=== PATIENT | female | born 1975 | race Caucasian/White ===

== ENCOUNTER 2020-07-19 18:18 | Emergency (ER) | payer OTHER ==
[2020-07-19] MEDS ORDERED: COMPAZINE10 MG PO (21:18)
[2020-07-19] MEDS ORDERED: IMITREX50 MG PO (21:18)
== END 2020-07-19 21:36 | disposition home or self-care (01) ==
LOC: FER 18:18
DX: G43.909 Migraine, unspecified, not intractable, without status migrainosus (principal); F17.210 Nicotine dependence, cigarettes, uncomplicated
CPT/HCPCS: J0780; J1170; J1200; J1885; J7030

== ENCOUNTER 2021-03-13 18:31 | Emergency (ER) | payer OTHER ==
[~2021-03-13 18:31] MED LIST: COMPAZINE10 MG PO; IMITREX50 MG PO
[2021-03-13 19:59] LABS: CORONAVIRUS 2019 SARS-COV-2 POSITIVE (NEGATIVE); INFLUENZA A NAA NEGATIVE (NEGATIVE)
== END 2021-03-13 21:41 | disposition home or self-care (01) ==
LOC: FER 18:31
PROVIDERS: Emergency Medicine
DX: U07.1 COVID-19 (principal); F17.210 Nicotine dependence, cigarettes, uncomplicated
CPT/HCPCS: 99284; U0002